=== PATIENT | male | born 1980 | race Caucasian/White ===

== ENCOUNTER 2020-11-29 19:56 | Emergency (ER) | payer OTHER, SELFPAY ==
[2020-11-29 19:57] VITALS: BP 139/91; PULSE 87; RESP 18; TEMP 37.1; O2SAT 97; BMI 24.9
--- NOTE | 2020-11-29 20:53 | EDS_ITS ---
HPI History of Present Illness Chief Complaint: Bite Informant: patient Onset/Context/Timing Onset: Today Narrative Narrative: Patient woke this morning with a bat in his bedroom. He is unsure if he may have been bitten. His was seen earlier to be started on the vaccination protocol for rabies. Patient states he did get vaccinated around the age of 15. He has no complaints at this time. PFSH PFSH no medical history Home Medications ondansetron 4 mg PO Q8H PRN PRN #10 tab 08/16/13 [Rx Last Taken Unknown] Allergy/AdvReac Type Severity Reaction Status Date / Time erythromycin base AdvReac Vomiting Verified 11/29/20 19:59 [Erythromycin Base] Social History Smoking Status: Never smoker ROS ROS ED Constitutional Constitutional ED: Denies chills or fever(s) Eyes Eyes: Denies change in vision ENT ENT ED: Denies sore throat Cardiovascular Cardiovascular: Denies chest pain Respiratory/Chest Respiratory/Chest: Denies cough or dyspnea Gastrointestinal Gastrointestinal: Denies abdominal pain, diarrhea, nausea or vomiting Genitourinary Genitourinary ED: Denies dysuria Musculoskeletal Musculoskeletal: Denies back pain Integumentary Denies rash Neurologic Neurologic: Denies headache(s) or weakness Psychiatric Psychiatric: Denies anxiety or depression Allergic/Immunologic Allergic/Immunologic ED: Denies urticaria EXAM Physical Exam Const Vital Signs: 11/29/20 19:57 Temperature 98.7 F Temperature Source Temporal Pulse Rate 87 Respiratory Rate 18 Blood Pressure 139/91 H Blood Pressure Mean 107 Pulse Ox 97 Oxygen Delivery Method Room Air Positive well nourished and well developed General Appearance ED: well developed HEENT Reports normocephalic and head/scalp atraumatic Eyes PERRL and EOMs intact bilaterally Neck supple Chest Wall inspection of chest normal and palpation of chest normal Resp normal respiratory effort and clear to auscultation bilaterally Cardio regular rate and regular rhythm GI normal to inspection, nondistended, normoactive bowel sounds Palpation: soft Extremity normal to inspection Neuro oriented x3 and no sensory deficits noted Sensorium / Orientation: alert Motor Exam: strength 5/5 throughout Psych mental status grossly normal Skin no rashes or lesions noted [facility] Treatment and Re-Evaluation Comments:: Per protocol because the patient has been vaccinated previously he will require vaccine dose on day 0 and day 3. I did review CDC guidelines and they do state that once the patient has been vaccinated this is all that is required. There is not a specific timeline on when that vaccination has to be given. Discharge Plan Triage Chief Complaint: Bite ED Provider: Gita Ames Dx/Rx/DC Orders Clinical Impression: Exposure to bat without known bite Instructions: Understanding Rabies Prescriptions: No Action ondansetron 4 MG tablet 4 mg PO Q8H PRN PRN (Reason: Nausea) Qty: 10 RF: 0 Primary Care Provider: Sonya Olea Referrals: Sonya Olea MD [Primary Care Provider] - Disposition Disposition: Home, Self Care Discharge Date/Time: 11/29/20 21:57
[2020-11-29] MEDS: Rabies Vaccine,Human Diploid 2.5 UNITS Vial IM (21:28)
== END 2020-11-29 21:57 | disposition home or self-care (01) ==
LOC: ED 21:23
PROVIDERS: Emergency Provider Emergency Medicine; PCP Family Medicine
DX: Z20.3 Contact with and (suspected) exposure to rabies (principal)
CPT/HCPCS: 90675; 96372; 99282

== ENCOUNTER 2020-12-02 09:44 | Outpatient (CLI) | payer OTHER, SELFPAY ==
[2020-12-02 10:20] VITALS: PULSE 88; RESP 16; TEMP 36.4; O2SAT 97; BMI 24.9; BMI 54.9
[2020-12-02] MEDS: Rabies Vaccine,Human Diploid 2.5 UNITS Vial IM (10:36)
--- NOTE | 2020-12-02 10:48 | ED.RN ---
PT OBSERVED FOR SHOT TIME GREATER THAN 15 MIN NO REACTION NOTED BY THIS RN. PT D/C.
== END 2020-12-02 12:00 | disposition home or self-care (01) ==
LOC: ED 18:40
PROVIDERS: PCP Family Medicine
DX: Z23 Encounter for immunization (principal)
CPT/HCPCS: 90675; 96372